=== PATIENT | male | born 1990 | race Caucasian/White ===

== ENCOUNTER 2022-09-28 19:39 | Emergency (ER) | payer BC, SELFPAY ==
[2022-09-28 19:40] VITALS: BP 159/93; PULSE 110; RESP 15; TEMP 37.2; O2SAT 95; BMI 29.2
--- NOTE | 2022-09-28 21:34 | EDS_ITS ---
HPI History of Present Illness Chief Complaint: Laceration Narrative Narrative: 32-year-old male who denies significant past medical history presents with laceration to his left eyebrow that he sustained while he was playing softball a few hours ago. He states that he was trying to feel the ground ball, and it took a funny hop. It hit him in the eye. He denies loss of consciousness. No headache, no nausea or vomiting. He has no loss of vision. He presents because of a laceration to his left eyebrow. He believes his tetanus immunization is current, less than 10 years. He denies other injury. [facility] Home Medications bupropion HCl 100 mg tablet 300 mg PO DAILY 09/28/22 [History Last Taken Unknown] Allergy/AdvReac Type Severity Reaction Status Date / Time No Known Allergies Allergy Verified 09/28/22 19:43 Social History Smoking Status: Never smoker ROS ROS ED ROS Narrative Constitutional: No fever, no chills. HEENT: No sore throat. No neck pain. No loss of vision. No rhinorrhea. Laceration to left eyebrow Cardiovascular: No chest pain. No palpitations. No pedal edema. Respiratory: No cough, no shortness of breath. Abdominal: No abdominal pain. No nausea. No vomiting. Genitourinary: No dysuria. No hematuria. Musculoskeletal: No myalgias. No arthralgias. Neurologic: No headaches. No dizziness. No lightheadedness. Skin: No rash. No change in color. Psychiatric: No depression. No anxiety. EXAM Physical Exam Narrative Exam Narrative: GCS 15. ABCs intact. Afebrile. Vital signs noted. HEENT: Normocephalic. 3.5 cm laceration left eyebrow without active bleeding. PERRL, EOMI. Neck soft and supple. No point tenderness or step off. Cardiovascular: Regular rate and rhythm. No murmurs, rubs, or gallops appreciated. Respiratory: No tachypnea. Lungs clear to auscultation bilaterally. Gastrointestinal: Abdomen soft, nontender, with normoactive bowel sounds. No rebound or guarding. Neurological: Awake. Alert. Nonfocal, nonlateralizing. Skin: No rash. Normal color. No pallor. Musculoskeletal: No pedal edema. Full range of motion extremities. Const Vital Signs: 09/28/22 19:40 Temperature 99.0 F Temperature Source Temporal Pulse Rate 110 H Respiratory Rate 15 Blood Pressure 159/93 H Blood Pressure Mean 115 Pulse Ox 95 Oxygen Delivery Method Room Air PROC Procedures Lacerations Left eyebrow: Length: 1.18 in Depth: Skin Shape: Linear Prep: Sterile Conditions and Shure-Clens Laceration repair: Irrigated, Lidocaine, Local and Skin sutures Number of Sutures/Liz: 6 Suture Information: Ethilon and 6-0 Comment: Patient tolerated procedure well. MDM MDM MDM Narrative Medical decision making narrative: Patient presents with his soon-to-be [id number]. He was told of the risk of infection and scarring of the laceration to his left eyebrow and acknowledges an understanding. I discussed CT with the patient, and I do not feel it is clinically indicated. There was no loss of consciousness and he is asymptomatic, he does not take blood thinners. See procedure note for laceration repair specifics. He will look for signs of infection and have the sutures removed by his primary care provider in the next 5 to 7 days, or return to the emergency department. I do not feel that he requires observation, I do not feel he requires laboratory work. He will take [id number] analgesics. Return instructions to the emergency department were reviewed. Disposition is discharged home in stable condition. Discharge Plan Triage Chief Complaint: Laceration ED Provider: Derrick Chung Dx/Rx/DC Orders Clinical Impression: Laceration of eyebrow, left, Facial contusion Instructions: ED Facial Contusion, ED Head Injury (Adult), ED Laceration: All Closures Prescriptions: No Action bupropion HCl [Wellbutrin] 100 mg Tablet 300 mg PO DAILY Activity Restrictions/Additional Instructions: Follow-up with your primary care provider in the next 5 to 7 days for removal of 6 left eyebrow sutures. [id number] analgesics as needed. Disposition Disposition: Home, Self Care
[2022-09-28 22:46] VITALS: PULSE 97; RESP 15; O2SAT 99
[2022-09-28] MEDS: Lidocaine 1% (20 ml mdv) 20 ML Vial 10 ML INFILT (22:57)
== END 2022-09-28 23:09 | disposition home or self-care (01) ==
LOC: ED 23:06
PROVIDERS: Emergency Provider Emergency Medicine; Visit Provider Emergency Medicine
DX: S01.112A Laceration without foreign body of left eyelid and periocular area, initial encounter (principal); W21.07XA Struck by softball, initial encounter; Y93.64 Activity, baseball; S00.83XA Contusion of other part of head, initial encounter
CPT/HCPCS: 12013; 99282